=== PATIENT | female | born 1995 | race Hispanic/Latino ===

== ENCOUNTER 2023-02-10 15:34 | Observation (INO) | payer OTHER ==
[2023-02-10] MEDS ORDERED: hydrALAZINE 20 MG/ML VIAL SLOW IVP PRN (18:33)
[2023-02-10] MEDS ORDERED: Ondansetron PF 4 MG/2 ML Vial IVP PRN (18:37)
[2023-02-10] MEDS: Lactated Ringer's 1,000 ML IV SCH (20:35)
[2023-02-10] MEDS: Pantoprazole 40 MG VIAL IVP SCH (20:35)
[2023-02-10] MEDS: Multivitamins, Adult 10 ML, Thiamine HCl 100 MG, Folic Acid 1 MG in Dextrose 5 %-0.45 %... IV SCH (20:35)
[2023-02-10 21:02] VITALS: BMI 33.3
[2023-02-10 21:05] LABS: Bilirubin 1+ (Negative); Blood, Urine Negative (Negative); Clarity Clear (Clear); Glucose, Urine (Dipstick) Normal (Negative); Ketone, Urine 150 mg/dL (Negative); Leukocyte 25 (Negative); Nitrite Negative (Negative); Protein, Urine (Dipstick) 30 mg/dl (Neg-Trace); Specific Gravity, Urine 1.025 (1.005-1.030); Urobilinogen 12 mg/dL (Less than 2)
[2023-02-10 21:31] LABS: Bacteria/HPF 3+ HPF (None Seen); Mucous/LPF 2+ LPF (<2+); RBC/HPF 0-3 HPF (0-3)
[2023-02-11] MEDS: Lactated Ringer's 1,000 ML IV SCH ×2 (05:38→14:12)
[2023-02-11] MEDS: Acetaminophen 500 MG TAB PO PRN ×3 (05:38→22:04)
[2023-02-11] MEDS: Polyethylene Glycol 3350 17 GM Packet PO SCH (09:03)
[2023-02-11] MEDS: Pantoprazole 40 MG VIAL IVP SCH ×2 (09:03→21:55)
[2023-02-11] MEDS: Metoclopramide HCl 10 MG/2 ML VIAL IVP PRN ×3 (09:03→21:59)
[2023-02-11] MEDS: Multivitamins, Adult 10 ML, Thiamine HCl 100 MG, Folic Acid 1 MG in Dextrose 5 %-0.45 %... IV SCH (20:14)
[2023-02-12] MEDS: Lactated Ringer's 1,000 ML IV SCH ×2 (06:23→07:34)
[2023-02-12 08:05] VITALS: BP 97/50; TEMP 98
[2023-02-12] MEDS: Polyethylene Glycol 3350 17 GM Packet PO SCH (08:10)
[2023-02-12] MEDS: Pantoprazole 40 MG VIAL IVP SCH (08:11)
[2023-02-12] MEDS: Metoclopramide HCl 10 MG/2 ML VIAL IVP PRN (08:11)
[2023-02-12] MEDS: Acetaminophen 500 MG TAB PO PRN (09:34)
== END 2023-02-12 09:44 | disposition home or self-care (01) ==
LOC: CSHPED 17:03
PROVIDERS: ADMIT Obstetrics & Gynecology; ATTEND Obstetrics & Gynecology
DX: O21.0 Mild hyperemesis gravidarum (principal); O09.612 Supervision of young primigravida, second trimester; O99.282 Endocrine, nutritional and metabolic diseases complicating pregnancy, second trimester; E86.0 Dehydration; O99.612 Diseases of the digestive system complicating pregnancy, second trimester; K21.9 Gastro-esophageal reflux disease without esophagitis; Z3A.18 18 weeks gestation of pregnancy; Z98.84 Bariatric surgery status; Z79.899 Other long term (current) drug therapy; Z88.0 Allergy status to penicillin
CPT/HCPCS: 76705; 80053; 81001; 82607; 82652; 82728; 83540; 83550; 83690; 84425; 85025; 86780; 87086; 87340; C9113; J2405; J2765; J3411; J7042; J7120

== ENCOUNTER 2023-04-08 16:25 | Day surgery (SDC) | payer OTHER ==
[2023-04-08 16:49] VITALS: BMI 34.4
[2023-04-08] MEDS ORDERED: hydrALAZINE 20 MG/ML VIAL SLOW IVP PRN (17:09)
[2023-04-08] MEDS ORDERED: Lactated Ringer's 1,000 ML IV SCH (17:30)
[2023-04-08 17:43] LABS: Bilirubin Neg (Negative); Blood, Urine Negative (Negative); Clarity Clear (Clear); Glucose, Urine (Dipstick) Normal (Negative); Ketone, Urine 150 mg/dL (Negative); Leukocyte Negative (Negative); Nitrite Negative (Negative); Protein, Urine (Dipstick) 15 mg/dl (Neg-Trace)
[2023-04-08 17:57] LABS: Bacteria/HPF 1+ HPF (None Seen); CAUTI Indications for Culture Pregnancy; Mucous/LPF 4+ LPF (<2+); RBC/HPF 0-3 HPF (0-3); Urine Culture Reflex Yes Yes; WBC/HPF 0-3 HPF (0-3)
[2023-04-08] MEDS ORDERED: Morphine 4 MG/ML VIAL SLOW IVP SCH (18:00)
== END 2023-04-08 19:08 | disposition home or self-care (01) ==
LOC: CSHLD/OP 16:25
PROVIDERS: ATTEND Obstetrics & Gynecology
DX: O99.891 Other specified diseases and conditions complicating pregnancy (principal); R10.31 Right lower quadrant pain; O99.810 Abnormal glucose complicating pregnancy; O34.82 Maternal care for other abnormalities of pelvic organs, second trimester; N83.201 Unspecified ovarian cyst, right side; O99.282 Endocrine, nutritional and metabolic diseases complicating pregnancy, second trimester; E86.0 Dehydration; Z98.84 Bariatric surgery status; Z79.899 Other long term (current) drug therapy; Z98.890 Other specified postprocedural states; Z88.0 Allergy status to penicillin; Z3A.26 26 weeks gestation of pregnancy
CPT/HCPCS: 76770; 81001; 87086; J2270

== ENCOUNTER 2023-07-13 17:00 | Inpatient (IN) | payer OTHER ==
[2023-07-13] MEDS ORDERED: Acetaminophen 500 MG TAB PO PRN (19:59)
[2023-07-13] MEDS ORDERED: Zolpidem Tartrate 5 MG TAB PO PRN (19:59)
[2023-07-13] MEDS ORDERED: HYDROcodone/Acetaminophen 5/325 mg Tablet PO PRN ×2 (19:59)
[2023-07-13] MEDS ORDERED: Carboprost 250 MCG/ML AMP IM PRN (19:59)
[2023-07-13] MEDS ORDERED: Ondansetron PF 4 MG/2 ML Vial IVP PRN (19:59)
[2023-07-13] MEDS ORDERED: Promethazine HCl 25 MG/ML VIAL IM PRN (19:59)
[2023-07-13] MEDS ORDERED: Diphenoxylate HCl/Atropine Tablet PO PRN ×2 (19:59)
[2023-07-13] MEDS ORDERED: Lidocaine 1% (PF) 30 ML VIAL SC PRN (19:59)
[2023-07-13] MEDS ORDERED: Ibuprofen 800 MG TAB PO PRN (19:59)
[2023-07-13] MEDS ORDERED: hydrALAZINE 20 MG/ML VIAL SLOW IVP PRN (19:59)
[2023-07-13] MEDS ORDERED: Tranexamic Acid 1,000 MG/10 ML VIAL IVP PRN (19:59)
[2023-07-13] MEDS ORDERED: Misoprostol 200 MCG TAB PR PRN (19:59)
[2023-07-13] MEDS ORDERED: Methylergonovine 0.2 MG/ML VIAL IM PRN (19:59)
[2023-07-13] MEDS ORDERED: Oxytocin 30 units/NS 500 ML 500 ML IV SCH (20:00)
[2023-07-13] MEDS ORDERED: Lactated Ringer's 1,000 ML IV SCH (20:00)
[2023-07-13 20:16] VITALS: BMI 39.4
[2023-07-13] MEDS: Misoprostol 100 MCG TAB VAG SCH (21:13)
[2023-07-13 21:15] LABS: Hematocrit 36.2 % (34.9-44.5); Mean Corpuscular HGB CONC 33.1 g/dL (32.0-36.0); Mean Corpuscular Hemoglobin 27.9 pg (27.0-33.0); Mean Corpuscular Volume 84.2 fl (81.6-98.3); Platelet Count 236 10x3/uL (150-450); RBC Distribution Width 13.7 % (11.5-14.5); White Blood Cell (WBC) Count 9.9 10x3/uL (3.5-10.5)
[2023-07-13 22:38] LABS: Syphilis Antibody Nonreactive (Nonreactive); Syphilis Antibody Index 0.07 S/CO (<1.00 Non-Reactive)
[2023-07-13 22:40] LABS: HBSAg Index 0.27 S/CO (0-0.99); Hep B Surf Ag - L&D Non-Reactive S/CO (NonReactive)
[2023-07-14] MEDS: Oxytocin 30 units/NS 500 ML 500 ML IV SCH (08:29)
[2023-07-14] MEDS: fentaNYL 50 mcg/mL 1 mL Vial SLOW IVP PRN (08:58)
[2023-07-14] MEDS: fentaNYL/Ropivacaine Epidural 100 ML ONE (10:40)
[2023-07-14] MEDS ORDERED: diphenhydrAMINE 50 MG/ML VIAL IVP PRN (10:48)
[2023-07-14] MEDS ORDERED: Naloxone HCl 0.4 mg/ml Vial IVP PRN ×2 (10:48)
[2023-07-14] MEDS ORDERED: Moisturizing Cream (Eucerin) 113 GM JAR TOP PRN (10:48)
[2023-07-14] MEDS ORDERED: ePHEDrine Sulfate 50 MG/10 ML VIAL SLOW IVP PRN (10:48)
[2023-07-14] MEDS ORDERED: Acetaminophen 325 MG TAB PO PRN (10:48)
[2023-07-14] MEDS ORDERED: Lactated Ringer's 500 ML IV PRN (10:48)
[2023-07-14] MEDS ORDERED: Promethazine HCl 25 MG/ML VIAL IM PRN (10:48)
[2023-07-14] MEDS ORDERED: Ondansetron PF 4 MG/2 ML Vial IVP PRN (10:48)
[2023-07-14] MEDS ORDERED: Communication Order-Pharmacy FS SCH (11:00)
[2023-07-14] MEDS: fentaNYL 2 mcg/Ropivacaine 0.2% Epidural 100 ML CADD EPIDURAL SCH (19:35)
[2023-07-14] MEDS ORDERED: Famotidine/PF 20 mg/2ml Vial SLOW IVP PRN (23:03)
[2023-07-14] MEDS ORDERED: Bicitra 30 ML UDCUP PO PRN (23:03)
[2023-07-14] MEDS ORDERED: hydrALAZINE 20 MG/ML VIAL SLOW IVP PRN (23:12)
[2023-07-14] MEDS ORDERED: Boostrix 0.5 ML (Tdap) VIAL (>/=7 yrs of age) IM ONE (23:12)
[2023-07-14] MEDS ORDERED: Simethicone Chewable 80 MG TAB PO PRN (23:12)
[2023-07-14] MEDS ORDERED: diphenhydrAMINE 25 MG CAP PO PRN (23:12)
[2023-07-14] MEDS ORDERED: Bisacodyl 10 MG SUPP PR PRN (23:12)
[2023-07-14] MEDS ORDERED: Lanolin Ointment 7 GM TUBE TOP PRN (23:12)
[2023-07-14] MEDS ORDERED: Azithromycin 500 MG in Sodium Chloride 0.9% 250 ML 250 ML IVPB SCH (23:15)
[2023-07-14] MEDS ORDERED: CEFAZOLIN 2 GM in Sodium Chloride 0.9% 100 ML IVPB SCH (23:15)
[2023-07-15] MEDS ORDERED: fentaNYL 50 mcg/mL 1 mL Vial SLOW IVP PRN (00:42)
[2023-07-15] MEDS ORDERED: Meperidine HCl/PF 25 MG (1 mL) VIAL SLOW IVP PRN (00:42)
[2023-07-15] MEDS ORDERED: Promethazine HCl 25 MG SUPP PR PRN (00:42)
[2023-07-15] MEDS ORDERED: diphenhydrAMINE 50 MG/ML VIAL IVP PRN (00:42)
[2023-07-15] MEDS ORDERED: Promethazine HCl 25 MG/ML VIAL IM PRN (00:42)
[2023-07-15] MEDS ORDERED: Naloxone HCl 0.4 mg/ml Vial IVP PRN ×2 (00:42)
[2023-07-15] MEDS ORDERED: Ondansetron PF 4 MG/2 ML Vial IVP PRN ×2 (00:42)
[2023-07-15] MEDS ORDERED: Moisturizing Cream (Eucerin) 113 GM JAR TOP PRN (00:42)
[2023-07-15] MEDS ORDERED: Communication Order-Pharmacy FS SCH (00:45)
[2023-07-15] MEDS: Ketorolac Tromethamine 30 MG (1 mL) VIAL IVP SCH (02:52)
[2023-07-15] MEDS: Ondansetron PF 4 MG/2 ML Vial ONE (05:09)
[2023-07-15] MEDS: PHENYLEPHRINE-NS 100 MCG/ML 10 ML SYRINGE ONE (05:09)
[2023-07-15] MEDS: Oxytocin 10 UNITS/ML VIAL ONE (05:09)
[2023-07-15] MEDS: Dexamethasone 4 mg/ml Vial ONE (05:09)
[2023-07-15] MEDS: Morphine PF 10 MG/10 ML VIAL ONE (05:09)
[2023-07-15 05:43] LABS: Hematocrit 36.4 % (34.9-44.5); Hemoglobin 12.3 g/dL (12.0-15.5); Mean Corpuscular HGB CONC 33.8 g/dL (32.0-36.0); Mean Corpuscular Hemoglobin 28.3 pg (27.0-33.0); Mean Corpuscular Volume 83.9 fl (81.6-98.3); Mean Platelet Volume 12.9 fl (7.4-10.4); Platelet Count 199 10x3/uL (150-450); RBC Distribution Width 13.5 % (11.5-14.5); Red Blood Cell (RBC) Count 4.34 10x6/uL (3.90-5.03); White Blood Cell (WBC) Count 19.7 10x3/uL (3.5-10.5)
[2023-07-15] MEDS: Docusate 100 MG CAP PO SCH (08:31)
[2023-07-15] MEDS: Prenatal Vitamin 1 TAB PO SCH (08:31)
[2023-07-15] MEDS: Ketorolac Tromethamine 30 MG (1 mL) VIAL IVP PRN (12:36)
[2023-07-15] MEDS ORDERED: Bupivacaine PF 0.5% 30 ML VIAL ONE (14:51)
[2023-07-15] MEDS ORDERED: Lidocaine 2% MPF 10 ML AMP (For Epidural Use) ONE (14:51)
[2023-07-15] MEDS: Naloxone HCl 0.4 mg/ml Vial IV PRN (18:21)
[2023-07-15] MEDS: HYDROcodone/Acetaminophen 5/325 mg Tablet PO PRN (19:39)
[2023-07-16 11:47] VITALS: BP 105/53; TEMP 98.4
== END 2023-07-16 16:05 | disposition home or self-care (01) | DRG 788 ==
LOC: CSHLD 19:49 → CSHPED 07-15 04:00
PROVIDERS: ADMIT Obstetrics & Gynecology; ATTEND Obstetrics & Gynecology
PROC: 10D00Z1 Extraction of Products of Conception, Low, Open Approach (ICD-10-PCS; principal; 2023-07-15)
DX: O99.62 Diseases of the digestive system complicating childbirth (principal); Z37.0 Single live birth; K21.9 Gastro-esophageal reflux disease without esophagitis; Z79.899 Other long term (current) drug therapy; Z3A.40 40 weeks gestation of pregnancy; O32.4XX0 Maternal care for high head at term, not applicable or unspecified; O48.0 Post-term pregnancy
CPT/HCPCS: 36415; 51702; 85027; 86780; 86850; 86900; 86901; 87340; J0665; J1100; J1885; J2274; J2310; J2405; J2590; J3010